=== PATIENT | female | born 1965 | race Caucasian/White ===

== ENCOUNTER 2019-07-05 08:24 | Emergency (ER) | payer OTHER ==
[~2019-07-05] VITALS: Ht 157.5 cm; Wt 77.1 kg
== END 2019-07-05 12:28 | disposition home or self-care (01) ==
LOC: ER 08:24
DX: R42 Dizziness and giddiness (principal)

== ENCOUNTER 2019-07-16 13:03 | Outpatient (CLI) | payer OTHER ==
[~2019-07-16] VITALS: Ht 157.5 cm; Wt 77.1 kg
[2019-07-16] MEDS ORDERED: FLONASE16 GM NASAL (13:56)
[2019-07-16] MEDS ORDERED: SINGULAIR 10MG10 MG PO (13:57)
== END 2019-07-16 14:21 | disposition home or self-care (01) ==
LOC: OFIC 805 13:03
PROVIDERS: ATTEND Otolaryngology
DX: F41.1 Generalized anxiety disorder (principal); H61.23 Impacted cerumen, bilateral; H93.11 Tinnitus, right ear; J30.89 Other allergic rhinitis; R42 Dizziness and giddiness

== ENCOUNTER → 2021-09-30 | Emergency (ER) | payer OTHER ==
[~2021-09-30] VITALS: Ht 157.5 cm; Wt 79.4 kg
[~2021-09-30] MED LIST: FLONASE16 GM NASAL; SINGULAIR 10MG10 MG PO
== END | disposition left against medical advice (07) ==
LOC: ER 19:01
DX: Z53.21 Procedure and treatment not carried out due to patient leaving prior to being seen by health care provider (principal)

== ENCOUNTER 2023-05-28 12:14 | Emergency (ER) | payer OTHER ==
[~2023-05-28] VITALS: Ht 157.5 cm; Wt 78.0 kg
[2023-05-28] MEDS ORDERED: COZAAR25 MG PO (12:18)
[2023-05-28] MEDS ORDERED: ORPHENADRINE CITRATE 30 MG/ML AMPUL IM ONE (15:30)
[2023-05-28] MEDS ORDERED: TRIAMCINOLONE ACETONIDE 40 MG/ML VIAL IM ONE (15:30)
[2023-05-28] MEDS ORDERED: ACETAMINOPHEN 500 MG GEL..CAP PO ONE (15:45)
[2023-05-28] MEDS ORDERED: TYLENOL ARTHRI650 MG PO (17:43)
== END 2023-05-28 17:58 ==
LOC: ER 12:14
DX: M25.561 Pain in right knee (principal); Z88.0 Allergy status to penicillin; Z88.6 Allergy status to analgesic agent; I10 Essential (primary) hypertension

== ENCOUNTER 2024-03-16 12:36 | Emergency (ER) | payer OTHER ==
[~2024-03-16] VITALS: Ht 165.1 cm; Wt 72.6 kg
[~2024-03-16 12:36] MED LIST changes: +COZAAR25 MG PO; +TYLENOL ARTHRI650 MG PO
[2024-03-16] MEDS ORDERED: IRBESARTAN150 MG (12:47)
[2024-03-16] MEDS ORDERED: EZALLOR SPRINKLE5 MG (12:48)
[2024-03-16] MEDS ORDERED: BARIUM SULFATE 450 ML ORAL.SUSP PO ONE (13:18)
[2024-03-16 13:44] LABS: HEMATOCRIT 36.2 % (36.0-45.00); HEMOGLOBIN 12.4 g/dL (12.0-15.00); MEAN CELL VOLUME 91.4 fL (80.00-100.00); MEAN CORPUSCULAR HEMOGLOBIN 31.3 pg (27.00-32.0); MEAN CORPUSCULAR HGB CONC 34.2 g/dl (32.0-36.0); PLATELET COUNT 253 K/uL (150-450); RED BLOOD COUNT 3.96 M/uL (4.00-6.00); RED CELL DISTRIBUTION WIDTH 13.3 % (11.5-14.5)
[2024-03-16 14:04] LABS: CREATININE SERUM 0.6 mg/dL (0.55-1.02); GFR 102.32; POTASSIUM 3.55 mEq/L (3.5-5.1)
[2024-03-16] MEDS ORDERED: FAMOTIDINE/PF 20 MG in 0.9 % SODIUM CHLORIDE 8 ML IV PUSH STA (17:58)
[2024-03-16] MEDS ORDERED: CIPROFLOXACIN HCL 500 MG TABLET PO ONE (18:00)
[2024-03-16] MEDS ORDERED: HYOSCYAMINE SULFATE 0.125 MG TAB.SUBL SL ONE (18:00)
[2024-03-16] MEDS ORDERED: METROnidazole 500 MG TABLET PO ONE ×2 (18:00→18:15)
[2024-03-16] MEDS ORDERED: METRONIDAZOLE500 MG PO (18:12)
[2024-03-16] MEDS ORDERED: INTESTINEX680 M1 PO (18:12)
[2024-03-16] MEDS ORDERED: PROTONIX40 MG PO (18:12)
[2024-03-16] MEDS ORDERED: LEVSIN/SL0.125 MG SL (18:12)
[2024-03-16] MEDS ORDERED: CIPRO500 MG PO (18:12)
[2024-03-16] MEDS ORDERED: HYOSCYAMINE SULFATE 0.125 MG TAB.SUBL ONE (18:16)
[2024-03-16] MEDS ORDERED: FAMOTIDINE/PF 20 MG/2 ML VIAL ONE (18:17)
== END 2024-03-16 18:31 | disposition home or self-care (01) ==
LOC: ER 12:38
PROVIDERS: Emergency Medicine
DX: K57.32 Diverticulitis of large intestine without perforation or abscess without bleeding (principal); Z88.6 Allergy status to analgesic agent; Z88.0 Allergy status to penicillin

== ENCOUNTER → 2024-07-18 | Emergency (ER) | payer OTHER ==
[~2024-07-18] VITALS: Ht 157.5 cm; Wt 60.3 kg
[~2024-07-18] MED LIST changes: +CIPRO500 MG PO; +EZALLOR SPRINKLE5 MG; +INTESTINEX680 M1 PO; +IRBESARTAN150 MG; +LEVSIN/SL0.125 MG SL; +METRONIDAZOLE500 MG PO; +ORPHENADRINE CITRATE 30 MG/ML AMPUL IM STA; +ORPHENADRINE CITRATE 30 MG/ML AMPUL ONE; +PROTONIX40 MG PO
== END | disposition home or self-care (01) ==
LOC: ER 18:16
DX: F41.9 Anxiety disorder, unspecified (principal); I10 Essential (primary) hypertension; Z88.0 Allergy status to penicillin; Z88.6 Allergy status to analgesic agent

== ENCOUNTER → 2024-12-10 | Emergency (ER) | payer OTHER ==
[~2024-12-10] VITALS: Ht 157.5 cm; Wt 56.2 kg
[~2024-12-10] MED LIST changes: +ACETAMINOPHEN 500 MG GEL..CAP PO ONE; -ORPHENADRINE CITRATE 30 MG/ML AMPUL IM STA; -ORPHENADRINE CITRATE 30 MG/ML AMPUL ONE
[2024-12-10 15:12] LABS: URINE APPEARANCE Clear; URINE BILIRRUBIN Negative (NEGATIVE); URINE BLOOD Negative; URINE COLOR Yellow; URINE GLUCOSE Negative (NEGATIVE); URINE KETONE 15 (NEGATIVE); URINE LEUKOCYTE Negative; URINE NITRATE Negative; URINE PROTEIN Negative (NEGATIVE); URINE UROBILINOGEN 0.2 E.U./dl
[2024-12-10 15:15] LABS: URINE BACTERIA 1344.0 uL (0.0-1933); URINE EPITHELIAL CELLS 17.9 uL (0.0-38.8); URINE WBC 20.9 uL (0.0-23.2)
[2024-12-10 16:05] LABS: URINE CAST 0.14 uL (0.0-1.40); URINE RBC 1.6 uL (0.0-20.8)
== END | disposition home or self-care (01) ==
LOC: ER 11:22
PROVIDERS: General Practice
DX: N39.0 Urinary tract infection, site not specified (principal); E78.00 Pure hypercholesterolemia, unspecified; I10 Essential (primary) hypertension; Z88.0 Allergy status to penicillin; Z88.6 Allergy status to analgesic agent; Z91.041 Radiographic dye allergy status